=== PATIENT | female | born 1980 | race Caucasian/White ===

== ENCOUNTER 2016-09-02 14:58 | Inpatient (IN) | payer BC ==
[~2016-09-02] VITALS: Ht 152.4 cm; Wt 80.0 kg
[~2016-09-02 14:58] MED LIST: ALDOMET250 MG PO; AMBIEN10 M1 PO; AMOXICILLIN500 MG PO; ANUSOL-HC25 MG RC; AUGMENTIN 875 M1 TA1 PO; CIPRO500 MG PO; CLINDAMYCIN HC300 MG PO; CYCLOBENZAPRINE10 MG PO; DIFLUCAN200 MG PO; DOXYCYCLINE MO100 MG; FOLIC ACID1 MG PO; GLIPIZIDE; GLIPIZIDE ER2.5 MG PO; GLIPIZIDE2.5 MG PO; GLUCOPHAGE1000 MG PO; HYDROCODONE BIT1 T11 PO; IBU800 MG PO; KEFLEX500 MG PO; LANTUS100 U/ML SC; LISINOPRIL2.5 MG PO; METFORMIN HCL500 MG PO; METFORMIN500 MG PO; METHERGINE0.2 MG PO; MOTRIN800 MG PO; NOVOLOG FLEX100 U/ML; NOVOLOG FLEX100 U/ML SC; NYSTATIN CREAM15 GM PO; PEN-VEE K500 MG PO; PERCOCET 325 MG1 TA2 PO; PREDNISONE10 MG PO; PREDNISONE20 M1 PO; PRENATAL1 TA3 PO; PRINIVIL10 MG PO; PROPRANOLOL ER80 MG PO; SYMBICORT1 AE1; TRAMADOL50 MG PO; TUSSI-ORGANIDI120 ML PO; VICODIN ES 7501 TAB PO; ZITHROMAX1 GM/PACKE PO; [UNRECOGNIZED DRUG - REMARK]
[2016-09-02 15:27] VITALS: BP 147/90
[2016-09-02 16:05] LABS: BASO % 0.2 % (0.0-1.0); EOS # 0.1 10*3/uL (0.0-0.4); EOS % 0.4 % (1.0-4.0); HEMATOCRIT 41.5 % (37.0-47.0); HEMOGLOBIN 14.7 g/dl (12.0-16.0); IG # 0.1 10*3/uL (0.0-0.1); LYMPH # 2.8 10*3/uL (1.3-4.4); LYMPH % 15.6 % (27.0-41.0); MEAN CELL VOLUME 81.5 fl (81.0-99.0); MEAN CORPUSCULAR HGB 28.9 pg (27.0-31.0); MEAN CORPUSCULAR HGB CONC 35.4 g/dl (33.0-37.0); MEAN PLATELET VOLUME 9.6 fl (9.6-12.3); MONO # 1.4 10*3/uL (0.1-1.0); MONO % 7.8 % (3.0-9.0); NEUT # 13.7 10*3/uL (2.3-7.9); NEUT % 75.5 % (47.0-73.0); PLATELET COUNT AUTOMATED 322 10*3/uL (130-400); RED BLOOD COUNT 5.09 10*6/uL (4.10-5.10); RED CELL DISTRI WIDTH 13.2 % (0-14.5); WHITE BLOOD COUNT 18.1 10*3/uL (4.8-10.8)
[2016-09-02 16:20] LABS: ALBUMIN 3.3 gm/dl (3.1-4.5); ALKALINE PHOSPHATASE 106 U/L (45-117); BILIRUBIN, TOTAL 1.3 mg/dl (0.2-1.0); BUN 7 mg/dl (7-24); CARBON DIOXIDE 24 mmol/L (21-32); CHLORIDE 100 mmol/L (98-107); EST GLOM FILT AFRICAN AMERICAN > 60 ml/min; GLUCOSE 281 mg/dL (65-99); POTASSIUM 3.6 mmol/L (3.5-5.1); SGOT/AST 7 IU/L (3-35); SGPT/ALT 19 U/L (12-78); SODIUM 136 mmol/L (136-145); TOTAL PROTEIN 7.8 gm/dL (6.4-8.2)
[2016-09-02 17:52] VITALS: BP 144/80
[2016-09-02 18:00] VITALS: BP 136/85
[2016-09-02 18:01] LABS: LA>2 REFLEX 2 HR DRAW NOW
[2016-09-02] MEDS ORDERED: HUMALOG100 U/ML SC (18:15)
[2016-09-02 20:00] VITALS: BP 121/83
[2016-09-03] VITALS: BP 112/76
[2016-09-03 06:13] LABS: BUN 7 mg/dl (7-24); CARBON DIOXIDE 24 mmol/L (21-32); CHLORIDE 108 mmol/L (98-107); CHOLESTEROL 82 mg/dL (<200); EST GLOM FILT AFRICAN AMERICAN > 60 ml/min; FREE T4 1.25 ng/dl (0.76-1.46); GLUCOSE 208 mg/dL (65-99); HDL CHOLESTEROL 34 mg/dl (40-60); LDL CHOLESTEROL 13 mg/dL (9-159); MAGNESIUM 1.5 mg/dL (1.5-2.1); PHOSPHOROUS 3.4 mg/dL (2.5-4.9); POTASSIUM 3.3 mmol/L (3.5-5.1); SODIUM 142 mmol/L (136-145); TRIGLYCERIDES 173 mg/dl (<150); VLDL CHOLESTEROL 35 mg/dL (6-40)
[2016-09-03 06:26] LABS: BASO % 0.3 % (0.0-1.0); EOS # 0.3 10*3/uL (0.0-0.4); EOS % 2.6 % (1.0-4.0); IG # 0.1 10*3/uL (0.0-0.1); LYMPH # 2.8 10*3/uL (1.3-4.4); LYMPH % 21.7 % (27.0-41.0); MEAN CORPUSCULAR HGB 29.2 pg (27.0-31.0); MEAN CORPUSCULAR HGB CONC 34.2 g/dl (33.0-37.0); NEUT # 8.6 10*3/uL (2.3-7.9); NEUT % 66.6 % (47.0-73.0); PLATELET COUNT AUTOMATED 258 10*3/uL (130-400); RED BLOOD COUNT 3.97 10*6/uL (4.10-5.10); RED CELL DISTRI WIDTH 13.4 % (0-14.5); WHITE BLOOD COUNT 12.9 10*3/uL (4.8-10.8)
[2016-09-03 06:28] LABS: HEMATOCRIT 33.9 % (37.0-47.0); HEMOGLOBIN 11.6 g/dl (12.0-16.0); MEAN CELL VOLUME 85.4 fl (81.0-99.0)
[2016-09-03 06:58] LABS: HEMOGLOBIN A1c 8.7 % (4.8-5.6)
[2016-09-03 07:11] LABS: FOLIC ACID 12.4 ng/mL (>5.38); VITAMIN D, 25-HYDROXY 16.2 ng/mL (30-100)
[2016-09-03 08:00] VITALS: BP 111/75
[2016-09-03 12:00] VITALS: BP 134/82
[2016-09-03 16:00] VITALS: BP 139/94
[2016-09-03 20:00] VITALS: BP 139/94
[2016-09-03 22:19] LABS: BILIRUBIN NEGATIVE (NEGATIVE); BLOOD TRACE-INTACT (NEGATIVE); CLARITY SL CLOUDY (CLEAR); COLOR YELLOW (YELLOW); GLUCOSE TRACE (NEGATIVE); KETONE NEGATIVE (NEGATIVE); LEUKO ESTERASE NEGATIVE (NEGATIVE); NITRITE NEGATIVE (NEGATIVE); PROTEIN TRACE (NEGATIVE); SPECIFIC GRAVITY 1.025 (1.005-1.030)
[2016-09-03 22:23] LABS: RBC 0-2 rbc/hpf (0-2)
[2016-09-03 22:24] LABS: BACTERIA 1+
[2016-09-04] VITALS: BP 130/84
[2016-09-04 05:58] LABS: BASO % 0.3 % (0.0-1.0); EOS # 0.5 10*3/uL (0.0-0.4); EOS % 4.5 % (1.0-4.0); HEMATOCRIT 33.3 % (37.0-47.0); HEMOGLOBIN 11.2 g/dl (12.0-16.0); IG # 0.1 10*3/uL (0.0-0.1); LYMPH # 2.8 10*3/uL (1.3-4.4); LYMPH % 24.3 % (27.0-41.0); MEAN CELL VOLUME 85.8 fl (81.0-99.0); MEAN CORPUSCULAR HGB 28.9 pg (27.0-31.0); MEAN CORPUSCULAR HGB CONC 33.6 g/dl (33.0-37.0); MEAN PLATELET VOLUME 9.8 fl (9.6-12.3); MONO # 0.7 10*3/uL (0.1-1.0); MONO % 5.9 % (3.0-9.0); NEUT # 7.4 10*3/uL (2.3-7.9); NEUT % 64.6 % (47.0-73.0); PLATELET COUNT AUTOMATED 264 10*3/uL (130-400); RED BLOOD COUNT 3.88 10*6/uL (4.10-5.10); RED CELL DISTRI WIDTH 13.2 % (0-14.5); WHITE BLOOD COUNT 11.4 10*3/uL (4.8-10.8)
[2016-09-04 06:11] LABS: ALBUMIN 2.3 gm/dl (3.1-4.5); ALKALINE PHOSPHATASE 114 U/L (45-117); BILIRUBIN, TOTAL 0.8 mg/dl (0.2-1.0); BUN 4 mg/dl (7-24); CARBON DIOXIDE 26 mmol/L (21-32); CHLORIDE 106 mmol/L (98-107); EST GLOM FILT AFRICAN AMERICAN > 60 ml/min; GLUCOSE 138 mg/dL (65-99); MAGNESIUM 1.3 mg/dL (1.5-2.1); PHOSPHOROUS 3.4 mg/dL (2.5-4.9); POTASSIUM 3.7 mmol/L (3.5-5.1); SGOT/AST 15 IU/L (3-35); SGPT/ALT 15 U/L (12-78); SODIUM 139 mmol/L (136-145); TOTAL PROTEIN 6.2 gm/dL (6.4-8.2)
[2016-09-04 08:00] VITALS: BP 150/90
[2016-09-04 12:00] VITALS: BP 140/92
[2016-09-04 16:00] VITALS: BP 143/92
[2016-09-04 20:00] VITALS: BP 144/89
[2016-09-05] VITALS: BP 148/87
[2016-09-05 08:00] VITALS: BP 125/89
[2016-09-05 09:33] LABS: BASO % 0.4 % (0.0-1.0); EOS # 0.5 10*3/uL (0.0-0.4); EOS % 5.4 % (1.0-4.0); HEMATOCRIT 31.9 % (37.0-47.0); IG # 0.1 10*3/uL (0.0-0.1); LYMPH # 2.7 10*3/uL (1.3-4.4); LYMPH % 32.6 % (27.0-41.0); MEAN CELL VOLUME 85.8 fl (81.0-99.0); MEAN CORPUSCULAR HGB 29.6 pg (27.0-31.0); MEAN CORPUSCULAR HGB CONC 34.5 g/dl (33.0-37.0); MEAN PLATELET VOLUME 9.2 fl (9.6-12.3); MONO # 0.6 10*3/uL (0.1-1.0); MONO % 7.2 % (3.0-9.0); NEUT # 4.5 10*3/uL (2.3-7.9); NEUT % 53.8 % (47.0-73.0); PLATELET COUNT AUTOMATED 289 10*3/uL (130-400); RED BLOOD COUNT 3.72 10*6/uL (4.10-5.10); RED CELL DISTRI WIDTH 13.2 % (0-14.5); WHITE BLOOD COUNT 8.3 10*3/uL (4.8-10.8)
[2016-09-05 10:02] LABS: CHLORIDE 104 mmol/L (98-107); POTASSIUM 3.5 mmol/L (3.5-5.1); SODIUM 140 mmol/L (136-145)
[2016-09-05 10:21] LABS: ALBUMIN 2.6 gm/dl (3.1-4.5); ALKALINE PHOSPHATASE 133 U/L (45-117); BILIRUBIN, TOTAL 0.4 mg/dl (0.2-1.0); BUN 5 mg/dl (7-24); C-REACTIVE PROTEIN 8.67 MG/DL (0-0.3); CARBON DIOXIDE 27 mmol/L (21-32); EST GLOM FILT AFRICAN AMERICAN > 60 ml/min; GLUCOSE 170 mg/dL (65-99); MAGNESIUM 1.7 mg/dL (1.5-2.1); SGOT/AST 17 IU/L (3-35); SGPT/ALT 15 U/L (12-78); TOTAL PROTEIN 6.4 gm/dL (6.4-8.2)
[2016-09-05 12:00] VITALS: BP 140/90
[2016-09-05 16:00] VITALS: BP 140/96
[2016-09-05 20:00] VITALS: BP 146/88
[2016-09-06] VITALS: BP 145/87
[2016-09-06 05:48] LABS: BASO % 0.4 % (0.0-1.0); EOS # 0.5 10*3/uL (0.0-0.4); EOS % 6.3 % (1.0-4.0); HEMATOCRIT 34.5 % (37.0-47.0); HEMOGLOBIN 11.7 g/dl (12.0-16.0); IG # 0.1 10*3/uL (0.0-0.1); LYMPH % 38.7 % (27.0-41.0); MEAN CELL VOLUME 85.2 fl (81.0-99.0); MEAN CORPUSCULAR HGB 28.9 pg (27.0-31.0); MEAN CORPUSCULAR HGB CONC 33.9 g/dl (33.0-37.0); MEAN PLATELET VOLUME 9.1 fl (9.6-12.3); MONO # 0.5 10*3/uL (0.1-1.0); MONO % 6.1 % (3.0-9.0); NEUT # 3.7 10*3/uL (2.3-7.9); NEUT % 47.7 % (47.0-73.0); PLATELET COUNT AUTOMATED 331 10*3/uL (130-400); RED BLOOD COUNT 4.05 10*6/uL (4.10-5.10); WHITE BLOOD COUNT 7.7 10*3/uL (4.8-10.8)
[2016-09-06 06:01] LABS: ALBUMIN 2.4 gm/dl (3.1-4.5); ALKALINE PHOSPHATASE 136 U/L (45-117); BILIRUBIN, TOTAL 0.4 mg/dl (0.2-1.0); BUN 7 mg/dl (7-24); CARBON DIOXIDE 29 mmol/L (21-32); CHLORIDE 104 mmol/L (98-107); EST GLOM FILT AFRICAN AMERICAN > 60 ml/min; GLUCOSE 126 mg/dL (65-99); MAGNESIUM 1.5 mg/dL (1.5-2.1); POTASSIUM 3.5 mmol/L (3.5-5.1); SGOT/AST 19 IU/L (3-35); SGPT/ALT 17 U/L (12-78); SODIUM 142 mmol/L (136-145); TOTAL PROTEIN 6.5 gm/dL (6.4-8.2)
[2016-09-06 08:00] VITALS: BP 136/82
[2016-09-06 12:00] VITALS: BP 134/96
[2016-09-06 16:00] VITALS: BP 146/90
[2016-09-06 20:00] VITALS: BP 134/86; BP 142/90
[2016-09-07] VITALS: BP 145/90
[2016-09-07 06:12] LABS: BASO % 0.5 % (0.0-1.0); EOS # 0.5 10*3/uL (0.0-0.4); EOS % 5.9 % (1.0-4.0); HEMATOCRIT 35.6 % (37.0-47.0); HEMOGLOBIN 12.2 g/dl (12.0-16.0); IG # 0.1 10*3/uL (0.0-0.1); LYMPH % 35.8 % (27.0-41.0); MEAN CELL VOLUME 84.6 fl (81.0-99.0); MEAN CORPUSCULAR HGB CONC 34.3 g/dl (33.0-37.0); MEAN PLATELET VOLUME 9.1 fl (9.6-12.3); MONO # 0.5 10*3/uL (0.1-1.0); MONO % 5.5 % (3.0-9.0); NEUT # 4.2 10*3/uL (2.3-7.9); NEUT % 50.9 % (47.0-73.0); PLATELET COUNT AUTOMATED 351 10*3/uL (130-400); RED BLOOD COUNT 4.21 10*6/uL (4.10-5.10); WHITE BLOOD COUNT 8.3 10*3/uL (4.8-10.8)
[2016-09-07 06:27] LABS: ALBUMIN 2.7 gm/dl (3.1-4.5); BUN 7 mg/dl (7-24); CARBON DIOXIDE 30 mmol/L (21-32); CHLORIDE 103 mmol/L (98-107); EST GLOM FILT AFRICAN AMERICAN > 60 ml/min; GLUCOSE 115 mg/dL (65-99); MAGNESIUM 1.6 mg/dL (1.5-2.1); POTASSIUM 3.4 mmol/L (3.5-5.1); SGOT/AST 18 IU/L (3-35); SGPT/ALT 20 U/L (12-78); SODIUM 140 mmol/L (136-145)
[2016-09-07 06:29] LABS: ALKALINE PHOSPHATASE 132 U/L (45-117); BILIRUBIN, TOTAL 0.4 mg/dl (0.2-1.0); TOTAL PROTEIN 6.9 gm/dL (6.4-8.2)
[2016-09-07 08:00] VITALS: BP 127/70
[2016-09-07 12:00] VITALS: BP 148/91
[2016-09-07] MEDS ORDERED: DOXYCYCLINE100 M3 PO (12:58)
[2016-09-07] MEDS ORDERED: REGLAN5 MG PO (12:58)
== END 2016-09-07 14:12 | disposition home or self-care (01) | DRG 872 ==
LOC: ED 14:58 → EDHOLD 16:14 → 4E 16:14
PROVIDERS: Emergency Medicine; Internal Medicine; Nurse Practitioner Family
DX: A41.9 Sepsis, unspecified organism (principal); E11.65 Type 2 diabetes mellitus with hyperglycemia; I10 Essential (primary) hypertension; L03.116 Cellulitis of left lower limb; L02.416 Cutaneous abscess of left lower limb; L03.314 Cellulitis of groin; R65.20 Severe sepsis without septic shock; J45.20 Mild intermittent asthma, uncomplicated; M54.16 Radiculopathy, lumbar region; E66.9 Obesity, unspecified; F17.200 Nicotine dependence, unspecified, uncomplicated; E87.6 Hypokalemia; Z79.84 Long term (current) use of oral hypoglycemic drugs; Z79.4 Long term (current) use of insulin; Z68.39 Body mass index [BMI] 39.0-39.9, adult; Z79.899 Other long term (current) drug therapy; Z82.49 Family history of ischemic heart disease and other diseases of the circulatory system; Z83.3 Family history of diabetes mellitus; Z90.49 Acquired absence of other specified parts of digestive tract; Z81.1 Family history of alcohol abuse and dependence; Z84.1 Family history of disorders of kidney and ureter; Z83.49 Family history of other endocrine, nutritional and metabolic diseases

== ENCOUNTER 2017-07-17 13:43 | Inpatient (IN) | payer BC ==
[~2017-07-17] VITALS: Ht 152.4 cm; Wt 73.7 kg
--- NOTE | ~2017-07-17 | CON ---
[place], [place] REPORT OF CONSULTATION [id number] UN[facility] #: [id number] ROOM: 526 DOCTOR: MICHELLE SOOD MD BIRTHDATE: [birth year] DOS: 07/17/2017 GASTROENDOSCOPIC CONSULTATON HISTORY OF PRESENT ILLNESS: This is a 36-year-old patient who is presented with chief complaint of abdominal pain which has been left-sided and has been lasting about past 2 weeks at least and gradually worsening to the point where she has noticed blood on toilet tissue and eventually yesterday was more than usual and she had to seek medical attention. She initially thought that is associated with vaginal bleed as well; however, a rectal examination in the Emergency Room was performed and some blood in the stool was noticed. PAST MEDICAL HISTORY: Associated with hypertension and diabetes mellitus since her mid 20s. PAST SURGICAL HISTORY: Associated with cholecystectomy as well as C-sections and folliculitis of her armpit on left side. SOCIAL HISTORY: Smoker of a half a pack of cigarette, nonalcohol consumer. FAMILY HISTORY: Noncontributory. ALLERGIES: To no known medications. MEDICATIONS: At home, doxycycline, metoclopramide, insulin, and metformin. REVIEW OF SYSTEMS: HEENT: Denies double vision, blurred vision. RESPIRATORY: Denies acute shortness of breath. Admits some cough. CARDIOVASCULAR: Denies chest pain. DIGESTIVE SYSTEM: Dyspepsia and blood in the stool. PHYSICAL EXAMINATION: VITAL SIGNS: Stable. HEENT: Head normocephalic, nontraumatic. Mouth and buccal mucosa benign. NECK: Supple, no thyromegaly, no cervical lymphadenopathy. CHEST: Symmetric anatomy, equal expansion. No wheeze, no rhonchi. HEART: Normal sinus rhythm, no gallop, no murmur. ABDOMEN: Globular, soft. No rebound effect, but she is expressing left-sided distress and pain. Bowel sounds active in all quadrants. EXTREMITIES: No cyanosis, no pedal edema. NEUROLOGIC: Fully alert, oriented to time, place, and person. Sensory, motor intact. Cranial nerves 2-12 intact. LABORATORY DATA: Reviewed. Lactic acid normal. CBC: White blood cell normal, H and H of 16 and 44. INR is 1.0. Comprehensive metabolic panel showed glucose of 382. Electrolytes were balanced. The patient's sed rate was within normal limits. CT scan of the abdomen and pelvis ____ CT scan was noticed and no bowel wall thickening specifically has been mentioned on CT. Main organs otherwise including pancreas, spleen, adrenal glands, and kidneys all normal. [place], [place] REPORT OF CONSULTATION NAME: LALIT UNDERWOOD UNIT #: [id number] ROOM: 526 DOCTOR: MICHELLE SOOD MD BIRTHDATE: [birth year] liver, which has been considered cirrhotic unlikely has been reported. Gallbladder is absent of course. IMPRESSION: Lower gastrointestinal bleed, most likely hemorrhoidal. Differential diagnosis is essentially limited to her above or perhaps diverticular. PLAN AND DISCUSSION: We are going to organize a colonoscopy for Monday morning. We are going to start colonic prep tomorrow morning since already late and Monday colonoscopy. OTHER ADJUNCTIVE DIAGNOSES: Hypertension, diabetes mellitus. Also, in order to assure that she is compliant with her diabetes we are going to get a hemoglobin A1c ordered on her to find status of control of sugar and reassessment. Thank you very much indeed. MICHELLE SOOD MD CM:CONSTR:REPORT OF CONSULTATION 1907 07/18/17 0326 interface
[~2017-07-17 13:43] MED LIST changes: +DOXYCYCLINE100 M3 PO; +HUMALOG100 U/ML SC; +REGLAN5 MG PO
[2017-07-17 13:53] VITALS: BP 160/117
[2017-07-17 14:53] LABS: BASO # 0.1 10*3/uL (0.0-0.1); BASO % 0.5 % (0.0-1.0); EOS # 0.4 10*3/uL (0.0-0.4); EOS % 3.5 % (1.0-4.0); HEMATOCRIT 44.9 % (37.0-47.0); LYMPH # 3.2 10*3/uL (1.3-4.4); LYMPH % 32.3 % (27.0-41.0); MEAN CELL VOLUME 81.6 fl (81.0-99.0); MEAN CORPUSCULAR HGB 29.1 pg (27.0-31.0); MEAN CORPUSCULAR HGB CONC 35.6 g/dl (33.0-37.0); MEAN PLATELET VOLUME 9.8 fl (9.6-12.3); MONO # 0.6 10*3/uL (0.1-1.0); MONO % 6.5 % (3.0-9.0); NEUT # 5.6 10*3/uL (2.3-7.9); NEUT % 56.9 % (47.0-73.0); PLATELET COUNT AUTOMATED 270 10*3/uL (130-400); RED CELL DISTRI WIDTH 13.2 % (0-14.5); WHITE BLOOD COUNT 9.9 10*3/uL (4.8-10.8)
[2017-07-17 15:01] LABS: BILIRUBIN NEGATIVE (NEGATIVE); BLOOD TRACE-INTACT (NEGATIVE); CLARITY CLEAR (CLEAR); COLOR YELLOW (YELLOW); GLUCOSE 3+ (NEGATIVE); KETONE NEGATIVE (NEGATIVE); LEUKO ESTERASE NEGATIVE (NEGATIVE); NITRITE NEGATIVE (NEGATIVE); UROBILINOGEN 0.2 E.U./dl (0.2-1.0)
[2017-07-17 15:03] LABS: ACT PARTIAL THROMBO TIME 22.9 SECONDS (20.8-31.5)
[2017-07-17 15:08] LABS: ALBUMIN 3.5 gm/dl (3.1-4.5); ALKALINE PHOSPHATASE 120 U/L (45-117); BUN 9 mg/dl (7-24); CHLORIDE 99 mmol/L (98-107); CREATININE 1.02 mg/dL (0.55-1.02); LIPASE 257 U/L (73-393); POTASSIUM 3.9 mmol/L (3.5-5.1); SGOT/AST 13 IU/L (3-35); SGPT/ALT 19 U/L (12-78); SODIUM 132 mmol/L (136-145); TOTAL PROTEIN 7.3 gm/dL (6.4-8.2)
[2017-07-17 15:24] LABS: BACTERIA 1+; RBC 0-2 rbc/hpf (0-2)
[2017-07-17 16:14] VITALS: BP 145/94
[2017-07-17] MEDS ORDERED: HUMULIN R500 UNIT/1 SQ (19:00)
== END 2017-07-17 19:39 | disposition left against medical advice (07) | DRG 378 ==
LOC: ED 13:43 → EDHOLD 16:16 → 5E 16:28
PROVIDERS: Physician Assistant
DX: K92.2 Gastrointestinal hemorrhage, unspecified (principal); E87.1 Hypo-osmolality and hyponatremia; E11.65 Type 2 diabetes mellitus with hyperglycemia; R00.0 Tachycardia, unspecified; I10 Essential (primary) hypertension; F17.210 Nicotine dependence, cigarettes, uncomplicated; E66.9 Obesity, unspecified; R74.8 Abnormal levels of other serum enzymes; Z90.49 Acquired absence of other specified parts of digestive tract; Z81.1 Family history of alcohol abuse and dependence; Z83.3 Family history of diabetes mellitus; Z82.49 Family history of ischemic heart disease and other diseases of the circulatory system; Z71.6 Tobacco abuse counseling

== ENCOUNTER → 2017-07-19 | Day surgery (SDC) | payer BC ==
[~2017-07-19] VITALS: Ht 152.4 cm; Wt 72.6 kg
[~2017-07-19] MED LIST changes: +HUMULIN R500 UNIT/1 SQ
--- NOTE | ~2017-07-19 | O ---
[place], [place] OPERATIVE NOTE NAME: LALIT UNDERWOOD UNIT #: [id number] ROOM: DOCTOR: MICHELLE SOOD MD BIRTHDATE: [birth year] DOS: 07/19/2017 GASTROENDOSCOPIC REPORT INDICATIONS: This is a 36-year-old patient with rectal bleed history periodically. ALLERGIES: No known medication. FAMILY HISTORY: Grandfathers on both sides with colonic carcinoma. PAST MEDICAL HISTORY: Hypertension, diabetes mellitus. SOCIAL HISTORY: Smoker, nonalcohol consumer. PAST SURGICAL HISTORY: Folliculitis, cholecystectomy, C-sections. PROCEDURE: Today's procedure part of investigation is colonoscopy plus snare polypectomy x 2. PREMEDICATION: Versed and propofol. SCOPE: Olympus forward-viewing colonoscope 10L video. REPORT: After putting the patient in left lateral position and application of lubricant to the scope, the scope was introduced. Thereafter, under direct visualization, advanced through the length of colon without difficulty to sigmoid colon. Two sessile polyps were identified, snare polypectomized. Both samples removed. Base of cecum explored. Appendiceal was identified. Ileocecal valve was defined. No acute pathology otherwise was noticed. Small hemorrhoid was appreciated. The patient extubated, tolerated procedure well. IMPRESSION: Two sessile polypoid lesions in sigmoid colon, status post snare polypectomy. Otherwise, a small hemorrhoid. PLAN: Preparation-H suppository 1 at bedtime for the next few days. High fiber diet, ____ and follow up as outpatient. Thank you very much indeed. [place], [place] OPERATIVE NOTE NAME: LALIT UNDERWOOD UNIT #: [id number] ROOM: DOCTOR: MICHELLE SOOD MD BIRTHDATE: [birth year] MICHELLE SOOD MD CM:OPRECORD:OPERATIVE NOTE [id number] DEAN SOOD MD 07/19/17 1324 interface
[2017-07-19 10:44] VITALS: BP 137/98
[2017-07-19 11:34] VITALS: BP 138/80
[2017-07-19 11:49] VITALS: BP 132/83
[2017-07-19 12:01] VITALS: BP 122/81
== END | disposition home or self-care (01) ==
LOC: SDC 07-18 14:00
DX: K63.5 Polyp of colon (principal); D12.5 Benign neoplasm of sigmoid colon; I10 Essential (primary) hypertension; J45.909 Unspecified asthma, uncomplicated; E11.9 Type 2 diabetes mellitus without complications; F17.210 Nicotine dependence, cigarettes, uncomplicated; Z98.890 Other specified postprocedural states; Z90.49 Acquired absence of other specified parts of digestive tract; Z80.0 Family history of malignant neoplasm of digestive organs

== ENCOUNTER 2017-08-27 14:52 | Emergency (ER) | payer BC ==
[~2017-08-27] VITALS: Ht 152.4 cm; Wt 77.1 kg
[2017-08-27 15:28] LABS: BASO # 0.1 10*3/uL (0.0-0.1); BASO % 0.6 % (0.0-1.0); EOS # 0.4 10*3/uL (0.0-0.4); EOS % 3.4 % (1.0-4.0); HEMATOCRIT 45.3 % (37.0-47.0); HEMOGLOBIN 16.1 g/dl (12.0-16.0); LYMPH # 3.5 10*3/uL (1.3-4.4); LYMPH % 28.6 % (27.0-41.0); MEAN CELL VOLUME 82.1 fl (81.0-99.0); MEAN CORPUSCULAR HGB 29.2 pg (27.0-31.0); MEAN CORPUSCULAR HGB CONC 35.5 g/dl (33.0-37.0); MONO # 0.6 10*3/uL (0.1-1.0); NEUT # 7.6 10*3/uL (2.3-7.9); NEUT % 61.8 % (47.0-73.0); PLATELET COUNT AUTOMATED 281 10*3/uL (130-400); RED BLOOD COUNT 5.52 10*6/uL (4.10-5.10); RED CELL DISTRI WIDTH 13.2 % (0-14.5); WHITE BLOOD COUNT 12.3 10*3/uL (4.8-10.8)
[2017-08-27 15:50] LABS: ALBUMIN 3.3 gm/dl (3.1-4.5); BUN 10 mg/dl (7-24); CHLORIDE 104 mmol/L (98-107); CREATININE 0.81 mg/dL (0.55-1.02); POTASSIUM 3.8 mmol/L (3.5-5.1); SGOT/AST 23 IU/L (3-35); SGPT/ALT 20 U/L (12-78); SODIUM 136 mmol/L (136-145)
[2017-08-27 15:51] LABS: ALKALINE PHOSPHATASE 110 U/L (45-117)
[2017-08-27 16:09] LABS: BILIRUBIN NEGATIVE (NEGATIVE); BLOOD NEGATIVE (NEGATIVE); CLARITY CLEAR (CLEAR); COLOR YELLOW (YELLOW); GLUCOSE 3+ (NEGATIVE); KETONE TRACE (NEGATIVE); LEUKO ESTERASE NEGATIVE (NEGATIVE); NITRITE NEGATIVE (NEGATIVE); SPECIFIC GRAVITY 1.015 (1.005-1.030); UROBILINOGEN 0.2 E.U./dl (0.2-1.0)
[2017-08-27 16:31] LABS: BACTERIA TRACE; YEAST TRACE
[2017-08-27 16:38] VITALS: BP 138/87
== END 2017-08-27 18:26 | disposition home or self-care (01) ==
LOC: ED 14:52
PROVIDERS: Physician Assistant
DX: O41.8X10 Other specified disorders of amniotic fluid and membranes, first trimester, not applicable or unspecified (principal); F17.200 Nicotine dependence, unspecified, uncomplicated; Z3A.01 Less than 8 weeks gestation of pregnancy

== ENCOUNTER 2017-09-10 19:33 | Emergency (ER) | payer BC ==
[~2017-09-10] VITALS: Ht 152.4 cm; Wt 73.5 kg
[2017-09-10 20:02] LABS: BASO # 0.1 10*3/uL (0.0-0.1); BASO % 0.6 % (0.0-1.0); EOS # 0.4 10*3/uL (0.0-0.4); EOS % 3.2 % (1.0-4.0); HEMATOCRIT 42.7 % (37.0-47.0); HEMOGLOBIN 14.6 g/dl (12.0-16.0); LYMPH # 3.1 10*3/uL (1.3-4.4); LYMPH % 24.5 % (27.0-41.0); MEAN CELL VOLUME 84.4 fl (81.0-99.0); MEAN CORPUSCULAR HGB 28.9 pg (27.0-31.0); MEAN CORPUSCULAR HGB CONC 34.2 g/dl (33.0-37.0); MEAN PLATELET VOLUME 10.2 fl (9.6-12.3); MONO # 0.8 10*3/uL (0.1-1.0); MONO % 6.1 % (3.0-9.0); NEUT # 8.2 10*3/uL (2.3-7.9); NEUT % 64.9 % (47.0-73.0); PLATELET COUNT AUTOMATED 239 10*3/uL (130-400); RED BLOOD COUNT 5.06 10*6/uL (4.10-5.10); RED CELL DISTRI WIDTH 13.6 % (0-14.5); WHITE BLOOD COUNT 12.7 10*3/uL (4.8-10.8)
[2017-09-10 20:12] LABS: INTERNATIONAL NORM RATIO 0.9 (2.0-3.5)
[2017-09-10 20:18] LABS: ALBUMIN 3.2 gm/dl (3.1-4.5); BUN 12 mg/dl (7-24); CHLORIDE 102 mmol/L (98-107); POTASSIUM 4.3 mmol/L (3.5-5.1); SGOT/AST 29 IU/L (3-35); SGPT/ALT 17 U/L (12-78); SODIUM 137 mmol/L (136-145); TOTAL PROTEIN 7.2 gm/dL (6.4-8.2)
[2017-09-10 20:23] LABS: ALKALINE PHOSPHATASE 87 U/L (45-117)
[2017-09-10 21:00] LABS: BILIRUBIN NEGATIVE (NEGATIVE); BLOOD NEGATIVE (NEGATIVE); CLARITY CLEAR (CLEAR); COLOR YELLOW (YELLOW); GLUCOSE 1+ (NEGATIVE); KETONE TRACE (NEGATIVE); LEUKO ESTERASE TRACE (NEGATIVE); NITRITE NEGATIVE (NEGATIVE); UROBILINOGEN 0.2 E.U./dl (0.2-1.0)
[2017-09-10 21:07] VITALS: BP 137/72
[2017-09-10 21:08] LABS: BACTERIA TRACE
[2017-09-10] MEDS ORDERED: CLINDAMYCIN150 MG PO (21:47)
[2017-09-10] MEDS ORDERED: Zofran4 MG SL (21:47)
== END 2017-09-10 22:18 | disposition home or self-care (01) ==
LOC: ED 19:33
PROVIDERS: Student in an Organized Health Care Education/Training Program
DX: O20.0 Threatened abortion (principal); O21.9 Vomiting of pregnancy, unspecified; O99.611 Diseases of the digestive system complicating pregnancy, first trimester; O24.911 Unspecified diabetes mellitus in pregnancy, first trimester; O16.1 Unspecified maternal hypertension, first trimester; O26.899 Other specified pregnancy related conditions, unspecified trimester; O99.331 Smoking (tobacco) complicating pregnancy, first trimester; K08.89 Other specified disorders of teeth and supporting structures; R11.0 Nausea; R39.198 Other difficulties with micturition; E11.9 Type 2 diabetes mellitus without complications; J45.909 Unspecified asthma, uncomplicated; E66.9 Obesity, unspecified; F17.200 Nicotine dependence, unspecified, uncomplicated; Z3A.08 8 weeks gestation of pregnancy; Z68.39 Body mass index [BMI] 39.0-39.9, adult

== ENCOUNTER 2020-06-10 17:24 | Emergency (ER) | payer BC ==
[~2020-06-10] VITALS: Wt 65.8 kg
[~2020-06-10 17:24] MED LIST changes: +CLINDAMYCIN150 MG PO; +Zofran4 MG SL
[2020-06-10 17:47] LABS: BASO # 0.1 10*3/uL (0.0-0.1); BASO % 0.5 % (0.0-1.0); EOS # 0.4 10*3/uL (0.0-0.4); EOS % 2.5 % (1.0-4.0); HEMATOCRIT 45.3 % (37.0-47.0); LYMPH # 3.1 10*3/uL (1.3-4.4); LYMPH % 21.6 % (27.0-41.0); MEAN CELL VOLUME 84.5 fl (81.0-99.0); MEAN CORPUSCULAR HGB 29.9 pg (27.0-31.0); MEAN CORPUSCULAR HGB CONC 35.3 g/dl (33.0-37.0); MONO # 0.7 10*3/uL (0.1-1.0); MONO % 4.9 % (3.0-9.0); NEUT # 10.1 10*3/uL (2.3-7.9); PLATELET COUNT AUTOMATED 279 10*3/uL (130-400); RED BLOOD COUNT 5.36 10*6/uL (4.10-5.10); RED CELL DISTRI WIDTH 12.8 % (0-14.5); WHITE BLOOD COUNT 14.4 10*3/uL (4.8-10.8)
[2020-06-10 17:59] LABS: ACT PARTIAL THROMBO TIME 24.4 SECONDS (20.0-32.1)
[2020-06-10 18:09] LABS: ALBUMIN 3.2 gm/dl (3.1-4.5); ALKALINE PHOSPHATASE 152 U/L (45-117); BUN 9 mg/dl (7-24); CHLORIDE 101 mmol/L (98-107); CREATININE 1.02 mg/dL (0.55-1.02); POTASSIUM 3.2 mmol/L (3.5-5.1); SGOT/AST 9 IU/L (3-35); SGPT/ALT 14 U/L (12-78); SODIUM 136 mmol/L (136-145); TOTAL PROTEIN 7.4 gm/dL (6.4-8.2)
[2020-06-10 18:28] LABS: BILIRUBIN Negative (Negative); BLOOD Negative (Negative); CLARITY Clear (Clear); COLOR Yellow (Yellow); GLUCOSE 3+ (Negative); KETONE Negative (Negative); LEUKO ESTERASE Negative (Negative); NITRITE Negative (Negative); SPECIFIC GRAVITY >= 1.030 (1.001-1.030); UROBILINOGEN 0.2 E.U./dl (0.0-1.0)
[2020-06-10 18:43] LABS: BACTERIA TRACE; RBC 0-2 rbc/hpf (0-2)
[2020-06-10 21:57] VITALS: BP 157/99
== END 2020-06-11 00:37 | disposition home or self-care (01) ==
LOC: ED 17:24
PROVIDERS: Family Medicine
DX: I50.21 Acute systolic (congestive) heart failure (principal); R73.9 Hyperglycemia, unspecified; E87.6 Hypokalemia; Z98.890 Other specified postprocedural states; Z90.49 Acquired absence of other specified parts of digestive tract

== ENCOUNTER 2020-10-01 18:44 | Inpatient (IN) | payer BC ==
[~2020-10-01] VITALS: Ht 152.4 cm; Wt 74.4 kg
[2020-10-01 19:04] VITALS: BP 135/103
[2020-10-01 19:05] VITALS: BP 144/98
[2020-10-01 19:49] LABS: BASO # 0.1 10*3/uL (0.0-0.1); BASO % 0.5 % (0.0-1.0); EOS # 0.2 10*3/uL (0.0-0.4); EOS % 1.6 % (1.0-4.0); HEMATOCRIT 44.8 % (37.0-47.0); LYMPH # 2.1 10*3/uL (1.3-4.4); LYMPH % 18.8 % (27.0-41.0); MEAN CELL VOLUME 86.7 fl (81.0-99.0); MEAN CORPUSCULAR HGB 29.8 pg (27.0-31.0); MEAN CORPUSCULAR HGB CONC 34.4 g/dl (33.0-37.0); MEAN PLATELET VOLUME 10.7 fl (9.6-12.3); MONO # 0.5 10*3/uL (0.1-1.0); NEUT # 8.3 10*3/uL (2.3-7.9); NEUT % 74.7 % (47.0-73.0); PLATELET COUNT AUTOMATED 241 10*3/uL (130-400); RED BLOOD COUNT 5.17 10*6/uL (4.10-5.10); RED CELL DISTRI WIDTH 14.3 % (0-14.5); WHITE BLOOD COUNT 11.2 10*3/uL (4.8-10.8)
[2020-10-01 21:01] LABS: BILIRUBIN Negative (Negative); BLOOD Trace-Lysed (Negative); CLARITY Clear (Clear); COLOR Yellow (Yellow); GLUCOSE 3+ (Negative); KETONE Negative (Negative); LEUKO ESTERASE Negative (Negative); NITRITE Negative (Negative); SPECIFIC GRAVITY >= 1.030 (1.001-1.030)
[2020-10-01 21:18] LABS: ALBUMIN 2.5 gm/dl (3.1-4.5); ALKALINE PHOSPHATASE 110 U/L (45-117); BUN 7 mg/dl (7-24); CHLORIDE 104 mmol/L (98-107); CREATININE 1.08 mg/dL (0.55-1.02); POTASSIUM 3.5 mmol/L (3.5-5.1); SGOT/AST 37 IU/L (3-35); SGPT/ALT 30 U/L (12-78); SODIUM 129 mmol/L (136-145); TOTAL PROTEIN 6.3 gm/dL (6.4-8.2); TROPONIN I 0.043 ng/ml (<0.045)
[2020-10-01 21:20] LABS: BACTERIA TRACE
[2020-10-01 23:04] VITALS: BP 126/90
[2020-10-01 23:37] VITALS: BP 140/91
[2020-10-01] MEDS ORDERED: FUROSEMIDE20 M1 PO (23:51)
[2020-10-02] VITALS (7 sets, daily range): BP systolic 116–140; BP diastolic 71–99
[2020-10-02] MEDS ORDERED: METOPROLOL SUCC25 M2 PO (00:02)
[2020-10-02] MEDS ORDERED: METFORMIN HYDR500 MG PO (00:03)
[2020-10-02] MEDS ORDERED: ATORVASTATIN CA40 M1 PO (00:03)
[2020-10-02] MEDS ORDERED: PROVENTIL HFA6.7 GM INH (00:04)
[2020-10-02 04:31] LABS: BASO % 0.3 % (0.0-1.0); EOS # 0.1 10*3/uL (0.0-0.4); EOS % 1.1 % (1.0-4.0); HEMATOCRIT 42.2 % (37.0-47.0); MEAN CELL VOLUME 85.8 fl (81.0-99.0); MEAN CORPUSCULAR HGB 29.1 pg (27.0-31.0); MEAN CORPUSCULAR HGB CONC 33.9 g/dl (33.0-37.0); MEAN PLATELET VOLUME 11.7 fl (9.6-12.3); MONO # 0.5 10*3/uL (0.1-1.0); MONO % 4.3 % (3.0-9.0); NEUT # 9.8 10*3/uL (2.3-7.9); NEUT % 77.9 % (47.0-73.0); PLATELET COUNT AUTOMATED 242 10*3/uL (130-400); RED BLOOD COUNT 4.92 10*6/uL (4.10-5.10); RED CELL DISTRI WIDTH 14.3 % (0-14.5); WHITE BLOOD COUNT 12.5 10*3/uL (4.8-10.8)
[2020-10-02 04:39] LABS: ACT PARTIAL THROMBO TIME 24.9 SECONDS (20.0-32.1); INTERNATIONAL NORM RATIO 1.1 (2.0-3.5)
[2020-10-02 04:55] LABS: ALBUMIN 2.8 gm/dl (3.1-4.5); BUN 8 mg/dl (7-24); CHLORIDE 100 mmol/L (98-107); CHOLESTEROL 97 mg/dL (<200); CREATININE 1.17 mg/dL (0.55-1.02); FREE T4 1.18 ng/dl (0.76-1.46); LDL CHOLESTEROL 21 mg/dL (9-159); POTASSIUM 3.8 mmol/L (3.5-5.1); SGOT/AST 46 IU/L (3-35); SGPT/ALT 33 U/L (12-78); SODIUM 128 mmol/L (136-145); TOTAL PROTEIN 6.7 gm/dL (6.4-8.2); TRIGLYCERIDES 275 mg/dl (<150)
[2020-10-02 04:57] LABS: ALKALINE PHOSPHATASE 131 U/L (45-117)
[2020-10-02 08:33] LABS: VITAMIN D, 25-HYDROXY 59.2 ng/mL (30-100)
[2020-10-03] VITALS: BP 104/76
[2020-10-03 08:00] VITALS: BP 98/73
[2020-10-03 12:00] VITALS: BP 105/74
== END 2020-10-03 16:54 | disposition left against medical advice (07) | DRG 871 ==
LOC: ED 18:44 → EDHOLD 22:04 → 4E 22:04
PROVIDERS: Hospitalist; Physician Assistant; ADMIT Internal Medicine; ATTEND Internal Medicine
DX: A41.9 Sepsis, unspecified organism (principal); N17.0 Acute kidney failure with tubular necrosis; J18.9 Pneumonia, unspecified organism; I50.23 Acute on chronic systolic (congestive) heart failure; E87.1 Hypo-osmolality and hyponatremia; R65.20 Severe sepsis without septic shock; Z53.29 Procedure and treatment not carried out because of patient's decision for other reasons; R74.01 Elevation of levels of liver transaminase levels; J45.40 Moderate persistent asthma, uncomplicated; E78.2 Mixed hyperlipidemia; E13.65 Other specified diabetes mellitus with hyperglycemia; B34.9 Viral infection, unspecified; I11.0 Hypertensive heart disease with heart failure; E66.9 Obesity, unspecified; F17.210 Nicotine dependence, cigarettes, uncomplicated; Z20.822 Contact with and (suspected) exposure to COVID-19; Z71.6 Tobacco abuse counseling; Z90.49 Acquired absence of other specified parts of digestive tract; Z83.3 Family history of diabetes mellitus; Z82.49 Family history of ischemic heart disease and other diseases of the circulatory system; Z79.899 Other long term (current) drug therapy; Z86.711 Personal history of pulmonary embolism; Z98.891 History of uterine scar from previous surgery

== ENCOUNTER → 2021-01-20 | Outpatient (CLI) | payer BC, OTHER ==
[~2021-01-20] MED LIST changes: +ATORVASTATIN CA40 M1 PO; +FUROSEMIDE20 M1 PO; +METFORMIN HYDR500 MG PO; +METOPROLOL SUCC25 M2 PO; +PROVENTIL HFA6.7 GM INH
[2021-01-20 15:31] LABS: CREATININE 1.62 mg/dL (0.55-1.02); POTASSIUM 3.8 mmol/L (3.5-5.1)
== END | disposition home or self-care (01) ==
LOC: LAB 14:49
PROVIDERS: ATTEND Internal Medicine Cardiovascular Disease
DX: I50.20 Unspecified systolic (congestive) heart failure (principal)

== ENCOUNTER → 2021-01-27 | Outpatient (CLI) | payer BC, OTHER ==
[2021-01-27 14:29] LABS: CREATININE 1.31 mg/dL (0.55-1.02); POTASSIUM 3.8 mmol/L (3.5-5.1)
== END | disposition home or self-care (01) ==
LOC: LAB 13:55
PROVIDERS: ATTEND Internal Medicine Cardiovascular Disease
DX: I50.20 Unspecified systolic (congestive) heart failure (principal)

== ENCOUNTER → 2021-07-01 | Outpatient (CLI) | payer BC, OTHER | END | disposition home or self-care (01) | LOC: LAB 16:26 | PROVIDERS: ATTEND Obstetrics & Gynecology Maternal & Fetal Medicine | DX: O09.521 Supervision of elderly multigravida, first trimester (principal); O24.919 Unspecified diabetes mellitus in pregnancy, unspecified trimester; O20.0 Threatened abortion; I50.9 Heart failure, unspecified; Z3A.00 Weeks of gestation of pregnancy not specified ==

== ENCOUNTER → 2021-07-03 | Outpatient (CLI) | payer BC, OTHER | END | disposition home or self-care (01) | LOC: LAB 13:21 | PROVIDERS: ATTEND Obstetrics & Gynecology Maternal & Fetal Medicine | DX: O09.521 Supervision of elderly multigravida, first trimester (principal); O20.0 Threatened abortion; O24.919 Unspecified diabetes mellitus in pregnancy, unspecified trimester; I50.9 Heart failure, unspecified ==

== ENCOUNTER 2023-09-18 10:26 | Emergency (ER) | payer BC, OTHER ==
[~2023-09-18] VITALS: Ht 157.4 cm; Wt 73.9 kg
[~2023-09-18 10:26] MED LIST changes: +ZITHROMAX250 MG PO
[2023-09-18 10:47] VITALS: BP 144/79
[2023-09-18 11:08] LABS: BASO # 0.1 10*3/uL (0.0-0.1); BASO % 0.6 % (0.0-1.0); EOS # 0.6 10*3/uL (0.0-0.4); EOS % 4.5 % (1.0-4.0); HEMATOCRIT 39.3 % (37.0-47.0); LYMPH # 3.1 10*3/uL (1.3-4.4); LYMPH % 24.3 % (27.0-41.0); MEAN CELL VOLUME 85.2 fl (81.0-99.0); MEAN CORPUSCULAR HGB 30.2 pg (27.0-31.0); MEAN CORPUSCULAR HGB CONC 35.4 g/dl (33.0-37.0); MEAN PLATELET VOLUME 9.6 fl (9.6-12.3); MONO # 0.5 10*3/uL (0.1-1.0); NEUT # 8.5 10*3/uL (2.3-7.9); NEUT % 65.9 % (47.0-73.0); PLATELET COUNT AUTOMATED 290 10*3/uL (130-400); RED BLOOD COUNT 4.61 10*6/uL (4.10-5.10); RED CELL DISTRI WIDTH 13.4 % (0-14.5); WHITE BLOOD COUNT 12.9 10*3/uL (4.8-10.8)
[2023-09-18 11:21] LABS: ACT PARTIAL THROMBO TIME 23.9 SECONDS (20.0-32.1)
[2023-09-18 11:35] LABS: POTASSIUM 2.9 mmol/L (3.4-5.1); TOTAL PROTEIN 6.8 gm/dL (6.0-8.0)
[2023-09-18] MEDS ORDERED: POTASSIUM CHLORIDE 20 MEQ TAB PO ONE (12:50)
[2023-09-18] MEDS ORDERED: MAGNESIUM OXIDE 400 MG TAB PO ONE (12:50)
[2023-09-18] MEDS ORDERED: MAGNESIUM400 M1 PO (13:21)
== END 2023-09-18 13:23 | disposition left against medical advice (07) ==
LOC: ED 10:26
PROVIDERS: Emergency Medicine
DX: I50.22 Chronic systolic (congestive) heart failure (principal); R79.89 Other specified abnormal findings of blood chemistry; E87.6 Hypokalemia; E83.42 Hypomagnesemia; Z53.29 Procedure and treatment not carried out because of patient's decision for other reasons; J45.909 Unspecified asthma, uncomplicated; E78.5 Hyperlipidemia, unspecified; E11.65 Type 2 diabetes mellitus with hyperglycemia; E87.1 Hypo-osmolality and hyponatremia; E11.22 Type 2 diabetes mellitus with diabetic chronic kidney disease; I13.0 Hypertensive heart and chronic kidney disease with heart failure and stage 1 through stage 4 chronic kidney disease, or unspecified chronic kidney disease; N18.32 Chronic kidney disease, stage 3b; F17.200 Nicotine dependence, unspecified, uncomplicated; Z90.49 Acquired absence of other specified parts of digestive tract; Z98.890 Other specified postprocedural states

== ENCOUNTER 2023-09-18 19:42 | Emergency (ER) | payer BC, OTHER ==
[~2023-09-18] VITALS: Ht 160 cm; Wt 73.5 kg
[~2023-09-18 19:42] MED LIST changes: +MAGNESIUM400 M1 PO
[2023-09-18] MEDS ORDERED: FUROSEMIDE 20 MG/2 ML VIAL IV ONE (20:05)
[2023-09-18] MEDS ORDERED: hydrOXYzine pamoate 25 MG CAP PO ONE (20:10)
[2023-09-18 20:26] LABS: BASO # 0.1 10*3/uL (0.0-0.1); BASO % 0.5 % (0.0-1.0); EOS # 0.5 10*3/uL (0.0-0.4); EOS % 4.1 % (1.0-4.0); HEMATOCRIT 37.7 % (37.0-47.0); LYMPH # 3.2 10*3/uL (1.3-4.4); LYMPH % 26.1 % (27.0-41.0); MEAN CELL VOLUME 86.3 fl (81.0-99.0); MEAN CORPUSCULAR HGB 30.2 pg (27.0-31.0); MEAN PLATELET VOLUME 9.8 fl (9.6-12.3); MONO # 0.5 10*3/uL (0.1-1.0); MONO % 3.8 % (3.0-9.0); NEUT % 64.8 % (47.0-73.0); PLATELET COUNT AUTOMATED 275 10*3/uL (130-400); RED BLOOD COUNT 4.37 10*6/uL (4.10-5.10); RED CELL DISTRI WIDTH 13.4 % (0-14.5); WHITE BLOOD COUNT 12.3 10*3/uL (4.8-10.8)
[2023-09-18 20:53] LABS: ALKALINE PHOSPHATASE 116 U/L (46-116); BUN 10 mg/dl (9-23); CHLORIDE 99 mmol/L (98-107); POTASSIUM 2.7 mmol/L (3.4-5.1); TOTAL PROTEIN 6.4 gm/dL (6.0-8.0)
[2023-09-18 20:58] LABS: SGPT/ALT < 7 U/L (5-49)
[2023-09-18] MEDS ORDERED: POTASSIUM CHLORIDE 20 MEQ TAB PO ONE (21:10)
[2023-09-18] MEDS ORDERED: POTASSIUM CHLORIDE IN WATER 100 ML IV ONE (21:10)
[2023-09-18] MEDS ORDERED: Nicotine 7 MG PATCH T ONE (22:20)
[2023-09-18 23:52] VITALS: BP 133/74
== END 2023-09-19 00:55 | disposition left against medical advice (07) ==
LOC: ED 19:42
PROVIDERS: Physician Assistant Medical
DX: E10.65 Type 1 diabetes mellitus with hyperglycemia (principal); R79.89 Other specified abnormal findings of blood chemistry; I11.0 Hypertensive heart disease with heart failure; I50.9 Heart failure, unspecified; F17.290 Nicotine dependence, other tobacco product, uncomplicated; Z90.49 Acquired absence of other specified parts of digestive tract; Z98.890 Other specified postprocedural states; Z53.29 Procedure and treatment not carried out because of patient's decision for other reasons

== ENCOUNTER → 2023-09-27 | Outpatient (CLI) | payer BC, OTHER ==
[~2023-09-27] MED LIST changes: +BUMETANIDE2 MG PO; +HUMALOG100 UNIT/1 SQ
[2023-09-29 18:07] LABS: GLUTAMIC ACID DECARB AB <5.0 U/mL (0.0-5.0)
== END | disposition home or self-care (01) ==
LOC: LAB 13:36
PROVIDERS: ATTEND Student in an Organized Health Care Education/Training Program
DX: E11.21 Type 2 diabetes mellitus with diabetic nephropathy (principal)

== ENCOUNTER → 2024-02-20 | Outpatient (CLI) | payer BC, OTHER | END | disposition home or self-care (01) | LOC: US 08:28 | PROVIDERS: ATTEND Physician Assistant | DX: K76.0 Fatty (change of) liver, not elsewhere classified (principal); R16.1 Splenomegaly, not elsewhere classified; R10.9 Unspecified abdominal pain ==

== ENCOUNTER → 2024-06-10 | Outpatient (CLI) | payer OTHER ==
[2024-06-10 17:58] LABS: ALKALINE PHOSPHATASE 94 U/L (46-116); BUN 17 mg/dl (9-23); CHLORIDE 98 mmol/L (98-107); CHOLESTEROL 169 mg/dL (<200); TOTAL PROTEIN 7.3 gm/dL (6.0-8.0); TRIGLYCERIDES 423 mg/dl (<150)
[2024-06-10 17:59] LABS: SGPT/ALT < 7 U/L (5-49)
== END | disposition home or self-care (01) ==
LOC: LAB 16:32
PROVIDERS: Student in an Organized Health Care Education/Training Program; ATTEND Internal Medicine Endocrinology, Diabetes & Metabolism
DX: E78.2 Mixed hyperlipidemia (principal); E11.65 Type 2 diabetes mellitus with hyperglycemia

== ENCOUNTER 2025-01-09 07:59 | Inpatient (IN) | payer OTHER, MEDICAID ==
[~2025-01-09] VITALS: Ht 154.9 cm; Wt 53.6 kg
[2025-01-09 08:11] VITALS: BP 118/78
[2025-01-09] MEDS ORDERED: MOUNJARO5 MG/0.51 SQ (08:12)
[2025-01-09 09:40] LABS: BASO # 0.0 10*3/uL (0.0-0.1); BASO % 0.1 % (0.0-1.0); EOS # 0.0 10*3/uL (0.0-0.4); EOS % 0.1 % (1.0-4.0); MEAN CELL VOLUME 82.1 fl (81.0-99.0); MEAN CORPUSCULAR HGB 29.5 pg (27.0-31.0); MEAN PLATELET VOLUME 10.0 fl (9.6-12.3); MONO # 0.7 10*3/uL (0.1-1.0); MONO % 5.7 % (3.0-9.0); NEUT # 6.7 10*3/uL (2.3-7.9); NEUT % 58.6 % (47.0-73.0); NUCLEATED RED BLOOD CELL 0.0 % (0.0-0.0); NUCLEATED RED BLOOD CELL 0.0 10*3/uL (0.0-0.0); PLATELET COUNT AUTOMATED 356 10*3/uL (130-400); RED CELL DISTRI WIDTH 13.8 % (0-14.5)
[2025-01-09 10:07] LABS: BUN 25 mg/dl (9-23); SGPT/ALT < 7 U/L (5-49)
[2025-01-09] MEDS ORDERED: POTASSIUM CHLORIDE 20 MEQ TAB PO ONE (10:10)
[2025-01-09] MEDS ORDERED: SODIUM CHLORIDE 0.9% 1,000 ML IV ONE ×2 (10:15→13:20)
[2025-01-09] MEDS ORDERED: ALPRAZOLAM0.5 M3 PO (10:52)
[2025-01-09] MEDS ORDERED: FLUOXETINE HCL10 M1 PO (10:56)
[2025-01-09] MEDS ORDERED: POTASSIUM CHLORIDE IN WATER 100 ML IV SCH (11:00)
[2025-01-09] MEDS ORDERED: Acetaminophen/Hydrocodone 5 MG/325 MG TABLET PO PRN (12:30)
[2025-01-09] MEDS ORDERED: BISACODYL 10 MG SUPP R PRN (12:30)
[2025-01-09] MEDS ORDERED: BISACODYL 5 MG TAB PO PRN (12:30)
[2025-01-09] MEDS ORDERED: ACETAMINOPHEN 650 MG SUPP R PRN (12:30)
[2025-01-09] MEDS ORDERED: ACETAMINOPHEN 325 MG TAB PO PRN (12:30)
[2025-01-09] MEDS ORDERED: DEXTROSE 50% 25 GM/50 ML VIAL IV PRN (12:35)
[2025-01-09] MEDS ORDERED: Metoclopramide Hydrochloride 10 MG/2 ML VIAL IV PRN (12:35)
[2025-01-09] MEDS ORDERED: MAGNESIUM SULFATE 50 ML IV ONE (12:50)
[2025-01-09] MEDS ORDERED: POTASSIUM CHLORIDE 40 MEQ in SODIUM CHLORIDE 0.9% 1,000 ML IV ONE (13:00)
[2025-01-09] MEDS ORDERED: XANAX0.5 MG PO (13:47)
[2025-01-09 13:56] VITALS: BP 109/70
[2025-01-09] MEDS ORDERED: ALBUTEROL 8 GM INHALER INH PRN (14:10)
[2025-01-09] MEDS ORDERED: ALPRAZolam 0.5 MG TAB PO PRN (14:10)
[2025-01-09] MEDS ORDERED: METOPROLOL SUCC50 M1 PO (14:11)
[2025-01-09 14:20] VITALS: BP 110/70
[2025-01-09 16:00] VITALS: BP 110/70
[2025-01-09 16:07] LABS: URINE CHLORIDE, RANDOM 27.0 mmol/L
[2025-01-09 16:08] LABS: BILIRUBIN Negative (Negative); BLOOD Negative (Negative); CLARITY Clear (Clear); COLOR Yellow (Yellow); KETONE Negative (Negative); LEUKO ESTERASE Trace (Negative); NITRITE Negative (Negative); PH 6.0 (4.5-8.0); SPECIFIC GRAVITY <= 1.005 (1.001-1.030); UROBILINOGEN 0.2 E.U./dl (0.0-1.0)
[2025-01-09 16:19] LABS: BACTERIA 1+
[2025-01-09] MEDS ORDERED: INSULIN LISPRO 1 UNIT/0.01 ML SQ SCH (16:30)
[2025-01-09 20:00] VITALS: BP 105/67
[2025-01-09 20:30] LABS: BUN 20.0 mg/dl (9-23)
[2025-01-09] MEDS ORDERED: HEPARIN SODIUM 5,000 UNIT/ML VIAL SC SCH (22:00)
[2025-01-09] MEDS ORDERED: ATORVASTATIN CALCIUM 40 MG TABLET PO SCH (22:00)
[2025-01-09] MEDS ORDERED: POTASSIUM CHLORIDE IN WATER 100 ML IV ONE (23:55)
[2025-01-10] VITALS: BP 93/57
[2025-01-10 06:15] LABS: BUN 19.0 mg/dl (9-23)
[2025-01-10 06:40] LABS: BASO # 0.0 10*3/uL (0.0-0.1); BASO % 0.1 % (0.0-1.0); EOS # 0.0 10*3/uL (0.0-0.4); EOS % 0.2 % (1.0-4.0); MEAN CORPUSCULAR HGB 30.2 pg (27.0-31.0); MEAN PLATELET VOLUME 10.2 fl (9.6-12.3); MONO # 0.5 10*3/uL (0.1-1.0); MONO % 5.3 % (3.0-9.0); NEUT # 4.9 10*3/uL (2.3-7.9); NEUT % 51.5 % (47.0-73.0); NUCLEATED RED BLOOD CELL 0.0 % (0.0-0.0); NUCLEATED RED BLOOD CELL 0.0 10*3/uL (0.0-0.0); PLATELET COUNT AUTOMATED 317 10*3/uL (130-400); RED CELL DISTRI WIDTH 14.1 % (0-14.5)
[2025-01-10 06:41] LABS: MEAN CELL VOLUME 84.0 fl (81.0-99.0)
[2025-01-10] MEDS ORDERED: POTASSIUM CHLORIDE 20 MEQ TAB PO ONE (07:10)
[2025-01-10 08:00] VITALS: BP 103/68
[2025-01-10] MEDS ORDERED: POTASSIUM CL D5/.45NS SOL. 1,000 ML IV SCH (09:50)
[2025-01-10] MEDS ORDERED: METOPROLOL SUCCINATE XR 50 MG TAB PO SCH (10:00)
[2025-01-10] MEDS ORDERED: ASPIRIN ENTERIC COATED 81 MG TAB PO SCH (10:00)
[2025-01-10 12:00] VITALS: BP 119/63
[2025-01-10] MEDS ORDERED: POTASSIUM CHLORIDE IN WATER 100 ML IV SCH (12:00)
[2025-01-10] MEDS ORDERED: Promethazine Hydrochloride 25 MG TAB PO ONE (12:35)
[2025-01-10] MEDS ORDERED: Promethazine Hydrochloride 25 MG/ML VIAL IV ONE (13:00)
[2025-01-10] MEDS ORDERED: BARIUM SULFATE 2% 450 ML BOT PO SCH (13:00)
[2025-01-10 16:00] VITALS: BP 111/64
[2025-01-10 20:00] VITALS: BP 115/60
[2025-01-10 20:22] LABS: BUN 17.0 mg/dl (9-23)
[2025-01-11] VITALS: BP 113/59
[2025-01-11 07:21] LABS: BUN 17 mg/dl (9-23)
[2025-01-11 08:00] VITALS: BP 125/71
[2025-01-11] MEDS ORDERED: Phosphorus/Potassium 1.45 GM PACKET PO SCH (11:30)
[2025-01-11 12:00] VITALS: BP 124/67
[2025-01-11] MEDS ORDERED: MAGNESIUM SULFATE 50 ML IV ONE (12:40)
[2025-01-11] MEDS ORDERED: POTASSIUM CHLORIDE 20 MEQ TAB PO ONE (12:45)
[2025-01-11] MEDS ORDERED: ATORVASTATIN CA40 M1 PO (13:58)
[2025-01-11] MEDS ORDERED: Ondansetron4 MG PO (13:58)
== END 2025-01-11 15:20 | disposition home or self-care (01) | DRG 280 ==
LOC: ED 07:59 → EDHOLD 12:21 → 5E 12:21
PROVIDERS: Internal Medicine Nephrology; Student in an Organized Health Care Education/Training Program; ADMIT Internal Medicine; ATTEND Internal Medicine
DX: I21.4 Non-ST elevation (NSTEMI) myocardial infarction (principal); N17.0 Acute kidney failure with tubular necrosis; I50.22 Chronic systolic (congestive) heart failure; I13.0 Hypertensive heart and chronic kidney disease with heart failure and stage 1 through stage 4 chronic kidney disease, or unspecified chronic kidney disease; E87.6 Hypokalemia; E83.42 Hypomagnesemia; N18.9 Chronic kidney disease, unspecified; E11.22 Type 2 diabetes mellitus with diabetic chronic kidney disease; J45.909 Unspecified asthma, uncomplicated; E78.5 Hyperlipidemia, unspecified; D72.829 Elevated white blood cell count, unspecified; F17.290 Nicotine dependence, other tobacco product, uncomplicated; E11.65 Type 2 diabetes mellitus with hyperglycemia; Z79.899 Other long term (current) drug therapy; Z79.2 Long term (current) use of antibiotics; Z79.01 Long term (current) use of anticoagulants; Z79.4 Long term (current) use of insulin; Z90.49 Acquired absence of other specified parts of digestive tract; Z98.891 History of uterine scar from previous surgery; Z81.1 Family history of alcohol abuse and dependence; Z86.711 Personal history of pulmonary embolism; Z83.3 Family history of diabetes mellitus; Z80.8 Family history of malignant neoplasm of other organs or systems; Z82.49 Family history of ischemic heart disease and other diseases of the circulatory system; Z84.19 Family history of other disorders of kidney and ureter